=== PATIENT | male | born 1980 | race Caucasian/White ===

== ENCOUNTER 2018-04-19 00:50 | Emergency (ER) | payer SELFPAY ==
[~2018-04-19] VITALS: Ht 177.8 cm; Wt 80.0 kg
[~2018-04-19 00:50] MED LIST: DIVA500T3; XANAX; ZYPREXA
[2018-04-19] MEDS ORDERED: LORAZEPAM 1MG TABLET PO ONE (06:45)
[2018-04-19] MEDS ORDERED: ALPRAZOLAM 0.25 MG TABLET PO ONE (07:15)
[2018-04-19 07:27] LABS: BASOPHILS % 0.6 % (0.0-2.0); EOSINOPHILS % 1.5 % (0.0-5.0); HEMATOCRIT. 44.6 % (42.0-52.0); HEMOGLOBIN. 15.4 g/dL (14.0-18.0); LYMPHOCYTES % 11.5 % (20.0-50.0); MEAN CORPUSCULAR HEMOGLOBIN 29.4 pg (28.0-32.0); MEAN CORPUSCULAR VOLUME 85.4 fL (80.0-94.0); MONOCYTES % 8.3 % (2.0-8.0); NEUTROPHILS % 78.1 % (40.0-76.0); PLATELET 370 x1000/uL (130-400); RED BLOOD CELL COUNT 5.23 mill/uL (4.7-6.1); RED CELL DISTRIBUTION WIDTH 14.2 % (11.6-14.6)
[2018-04-19 07:27] LABS: *AMPHETAMINES SCREEN URINE NEGATIVE (NEGATIVE); *BARBITURATES SCREEN URINE NEGATIVE (NEGATIVE)
[2018-04-19 07:28] LABS: *BENZODIAZEPINES SCREEN URINE PRESUMTIVE POSITIVE (NEGATIVE); *COCAINE SCREEN URINE NEGATIVE (NEGATIVE); METHADONE URINE SCREEN NEGATIVE (NEGATIVE); OPIATES URINE SCREEN NEGATIVE (NEGATIVE); PHENCYCLIDINE URINE SCREEN NEGATIVE (NEGATIVE)
[2018-04-19 07:29] LABS: CANNABINOID URINE SCREEN PRESUMTIVE POSITIVE (NEGATIVE)
[2018-04-19 07:34] LABS: CHLORIDE 105 mEq/L (98-107)
[2018-04-19 07:40] LABS: ETHANOL BLOOD < 10 mg/dL
[2018-04-19] MEDS ORDERED: IBUPROFEN 800MG TABLET PO ONE (09:00)
[2018-04-19 09:10] LABS: CLARITY URINE CLEAR (CLEAR); COLOR URINE YELLOW (YELLOW); KETONES URINE 1+ (NEGATIVE); LEUKOCYTE ESTERASE URINE NEGATIVE (NEGATIVE); NITRITE URINE NEGATIVE (NEGATIVE); OCCULT BLOOD URINE NEGATIVE (NEGATIVE); PROTEIN URINE NEGATIVE (NEGATIVE); UROBILINOGEN URINE 0.2 E.U./dL (0.2-1.0)
[2018-04-19] MEDS ORDERED: ACETAMINOPHEN WITH CODEINE 300/30MG TABLET PO ONE ×2 (17:45→22:15)
[2018-04-19] MEDS ORDERED: IBUPROFEN 600MG TABLET PO ONE (21:15)
[2018-04-19] MEDS ORDERED: BACITRACIN ZINC OINT UDPKT TOP ONE (22:15)
[2018-04-20] MEDS ORDERED: IBUPROFEN 600MG TABLET PO ONE (11:00)
[2018-04-20] MEDS ORDERED: TETANUS, DIPHTHERIA, PERTUSSIS VAC/PF 0.5ML (>7YR OLD) IM ONE (11:00)
[2018-04-20 15:00] VITALS: BP 123/82
== END 2018-04-20 15:13 ==
LOC: ER 00:50
DX: F20.9 Schizophrenia, unspecified (principal); M25.571 Pain in right ankle and joints of right foot; F32.9 Major depressive disorder, single episode, unspecified; F12.10 Cannabis abuse, uncomplicated; Z88.8 Allergy status to other drugs, medicaments and biological substances; Z90.49 Acquired absence of other specified parts of digestive tract
CPT/HCPCS: 36415; 73610; 73630; 80053; 80305; 80307; 80329; 81003; 85025; 99285; G0482; 90715

== ENCOUNTER 2018-07-03 03:14 | Emergency (ER) | payer MEDICAID ==
[~2018-07-03] VITALS: Ht 175.3 cm; Wt 79.0 kg
[2018-07-03 06:45] VITALS: BP 141/93
== END 2018-07-03 08:00 | disposition left against medical advice (07) ==
LOC: ER 03:14
DX: M25.571 Pain in right ankle and joints of right foot (principal); M54.30 Sciatica, unspecified side; F20.9 Schizophrenia, unspecified; I10 Essential (primary) hypertension; H54.61 Unqualified visual loss, right eye, normal vision left eye; Z90.49 Acquired absence of other specified parts of digestive tract; Z88.8 Allergy status to other drugs, medicaments and biological substances; X50.1XXA Overexertion from prolonged static or awkward postures, initial encounter; Y93.01 Activity, walking, marching and hiking; Y92.89 Other specified places as the place of occurrence of the external cause
CPT/HCPCS: 99281